=== PATIENT | female | born 1995 | race Two or more races ===

== ENCOUNTER 2019-10-29 18:20 | Emergency (ER) | payer MEDICAID ==
[~2019-10-29] VITALS: Ht 152.4 cm; Wt 50.9 kg
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
[2019-10-29 19:42] LABS: URINE HCG NEGATIVE (NEG)
[2019-10-29] MEDS ORDERED: NO HOME MEDS (19:43)
[2019-10-29 19:51] LABS: BASOPHILS % (AUTO) 0.3 % (0-1); EOSINOPHILS % (AUTO) 0.5 % (0-6); HEMATOCRIT 40.6 % (35.0-45.0); HEMOGLOBIN 13.7 g/dl (12.0-16.0); LYMPHOCYTES # (AUTO) 1.6 X10'3 (1.1-4.8); LYMPHOCYTES % (AUTO) 19.5 % (21-51); MEAN CORPUSCULAR HGB CONC 33.8 g/dL (33.0-36.5); MEAN PLATELET VOLUME 9.2 FL (7.4-10.4); MONOCYTES # (AUTO) 0.4 X10'3 (0-0.9); MONOCYTES % (AUTO) 4.7 % (2-12); NEUTROPHILS # (AUTO) 6.2 X10'3 (1.8-7.7); PLATELET COUNT 196 X10'3 (140-440); RED BLOOD COUNT 4.72 X10'6 (4.20-5.60); RED CELL DISTRIBUTION WIDTH 14.8 % (11.5-14.5); WHITE BLOOD COUNT 8.3 X10'3 (4.5-11.0)
[2019-10-29 19:58] LABS: URINE AMPHETAMINE SCREEN NEGATIVE (Neg); URINE BARBITUATE SCREEN NEGATIVE (Neg); URINE BENZODIAZEPINES SCREEN NEGATIVE (Neg); URINE CANNABINOID SCREEN POSITIVE (Neg); URINE COCAINE SCREEN NEGATIVE (Neg); URINE METHADONE SCREEN NEGATIVE (Neg); URINE OPIATE SCREEN NEGATIVE (Neg); URINE PHENCYCLIDINE SCREEN NEGATIVE (Neg)
[2019-10-29 20:03] LABS: ALANINE AMINOTRANSFERASE 21 U/L (12-78); ALBUMIN 4.2 G/DL (3.4-5.0); ALBUMIN/GLOBULIN RATIO 1.3 (1.1-1.5); ALKALINE PHOSPHATASE 83 IU/L (46-116); ANION GAP 14 (8-16); ASPARTATE AMINO TRANSFERASE 17 U/L (10-37); BILIRUBIN,TOTAL 0.2 MG/DL (0.1-1.0); BLOOD UREA NITROGEN 17 MG/DL (7-18); BUN/CREATININE RATIO 20.5 (6.6-38.0); CALCIUM 8.4 MG/DL (8.5-10.1); CHLORIDE 108 MMOL/L (99-107); CREATININE 0.83 MG/DL (0.40-0.90); GLUCOSE 89 MG/DL (70-104); POTASSIUM 3.4 MMOL/L (3.5-5.1); SODIUM 144 MMOL/L (135-145); TOTAL CARBON DIOXIDE 22.2 MMOL/L (24-32); TOTAL PROTEIN 7.4 G/DL (6.4-8.2); eGFR 86 ML/MIN
[2019-10-29 20:10] LABS: CLARITY,URINE CLEAR (Clear); COLOR,URINE YELLOW (Yellow); GLUCOSE, URINE NEGATIVE (Neg); KETONES,URINE NEGATIVE (Neg); LEUKOCYTE ESTERASE ,URINE NEGATIVE (Neg); NITRITES, URINE NEGATIVE (Neg); OCCULT BLOOD,URINE NEGATIVE (Neg); PROTEIN,URINE NEGATIVE (Neg); UROBILINOGEN,URINE 0.2 E.U/dL (0.2-1.0)
[2019-10-29 20:12] LABS: UA COLLECTION TYPE CLN CATCH MIDSTREAM
[2019-10-29 20:13] LABS: ETHANOL 0.043 GM/DL (0.0-0.010)
[2019-10-29] MEDS ORDERED: levoTHYROXINE 75mcg tablet PO STA (20:37)
--- NOTE | 2019-10-29 21:00 | NUR ---
Pt. sitting on bed, resting. No needs at this time.
--- NOTE | 2019-10-29 23:07 | NUR ---
Pt. laying in bed, sleeping/resting with eyes closed.
--- NOTE | 2019-10-30 01:04 | NUR ---
Pt. continues to sleep on her L side. No needs at this time.
--- NOTE | 2019-10-30 03:05 | NUR ---
Pt. continues to sleep on supine position. No needs at this time.
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
--- NOTE | 2019-10-30 07:00 | NUR ---
pt sleeping. no concerns at this time
--- NOTE | 2019-10-30 08:00 | NUR ---
pt sleeping. no concerns at this time
--- NOTE | 2019-10-30 09:00 | NUR ---
pt sleeping. no concerns at this time
--- NOTE | 2019-10-30 10:00 | NUR ---
pt sleeping. no concerns at this time
--- NOTE | 2019-10-30 11:00 | NUR ---
[facility] [phone]
[2019-10-30] MEDS ORDERED: OXCA300T16 PO (11:20)
[2019-10-30] MEDS ORDERED: FLUO10CA51 PO (11:20)
[2019-10-30] MEDS ORDERED: RISP2TAB3 PO (11:20)
--- NOTE | 2019-10-30 12:00 | NUR ---
pt is sleeping
--- NOTE | 2019-10-30 13:10 | NUR ---
PT'S SIGNIFICANT OTHER CALLED STATING CONCERNS REGARDING A CONVERSATION PT'S MOTHER HAD WITH THE PT TODAY. SIGNIFICANT OTHER STATES THAT PT IS PLANING TO TAKE THEIR BABY AWAY AND IS CONCERNED FOR THE PRAVIN WELFARE. HE WAS MAKING STATMENTS OF WANTING ER STAFF TO MAKE A CPS REPORT. SIGNIFICANT OTHER WAS TOLD THAT IF HE WAS CONCERNED ABOUT HIS PRAVIN SAFTY THAT HE COULD MAKE A REPORT TO CPS HIMSELF.
[2019-10-30 17:45] VITALS: BP 134/73
[2019-10-30] MEDS ORDERED: oxcarbazepine 150mg tablet PO SCH (20:00)
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
--- NOTE | 2019-10-30 20:56 | NUR ---
pt appears to be sleeping now. no s/s of distress noted.
[2019-10-30] MEDS ORDERED: risperiDONE 2mg tablet PO SCH (21:00)
[2019-10-31] MEDS ORDERED: FLUoxetine 10mg capsule PO SCH (08:00)
[2019-11-02] MEDS ORDERED: LITH150C8 PO (17:00)
[2019-11-02] MEDS ORDERED: TRAZ-251 PO (17:00)
[2019-11-02] MEDS ORDERED: HYDR-3686 PO (17:00)
[2019-11-02] MEDS ORDERED: LEVO75TA7 PO (17:00)
== END 2019-10-30 21:47 ==
LOC: ER 18:22
DX: R45.851 Suicidal ideations (principal); E03.9 Hypothyroidism, unspecified
CPT/HCPCS: 36415; 80053; 80305; 80320; 81003; 81025; 84443; 85025; 99285